=== PATIENT | male | born 1975 ===

== ENCOUNTER 2024-10-02 06:24 | Day surgery (SDC) | payer OTHER, SELFPAY | END 2024-10-02 14:06 | disposition home or self-care (01) | LOC: GI 06:24 | PROVIDERS: ATTENDING PHYSICIAN Internal Medicine Gastroenterology | DX: Z12.11 Encounter for screening for malignant neoplasm of colon (principal); K57.30 Diverticulosis of large intestine without perforation or abscess without bleeding; K64.8 Other hemorrhoids; D12.0 Benign neoplasm of cecum; K63.5 Polyp of colon | CPT/HCPCS: 45380; 88305 ==